=== PATIENT | male | born 1975 | race Caucasian/White ===

== ENCOUNTER 2018-02-04 21:06 | Emergency (ER) | payer BC, SELFPAY ==
[2018-02-04 21:12] VITALS: BP 128/95; PULSE 98; RESP 18; TEMP 37.1; O2SAT 98
--- NOTE | 2018-02-04 21:23 | DI.RAD_ITS ---
SYMPTOM/DIAGNOSIS: ANKLE PAIN LEFT ANKLE: Three views. No acute fracture or dislocation is seen. There does appear to be thickening of the Achilles tendon. This may reflect prior history and Achilles tendinopathy. Acute tendon injury cannot be excluded. IMPRESSION: No acute bone or joint abnormality. Follow up as clinically appropriate.
--- NOTE | 2018-02-04 21:29 | ED.GENADUL_ITS ---
Discharge Plan Disposition Patient Disposition: HOME Condition: Stable Discharge Details Chief Complaint: Orthopedic Clinical Impression: Strain of left Achilles tendon Primary Care Provider: Merna Cochran ED Provider: Madhu Cuenca Home Meds and New Rx's Prescriptions: No Action No Known Home Meds RF: 0 Discharge Instructions Instructions: Achilles Tendon Rupture (ED) Additional Instructions: Please wear your Ortho boot that you were given after your Achilles surgery. You may take this off at times asleep but otherwise keep boot on at all times. Wednesday morning call orthopedic office for arrangement of follow-up appointment and you should rest left lower extremity until cleared by orthopedic surgeon. May take [id number] acetaminophen as needed for pain control. Just take as directed on packaging. Stand Alone Forms: Work Release Referrals: Guero Shell MD [ [facility] STAFF PHYSICIAN] - (Please call the office for arrangement of close follow-up appointment next week.) Medical Decision Making Patient presented to the emergency department chief complaint of left Achilles pain. 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 Patient is status post Achilles tendon repair from rupture that occurred approximately 5 months ago. Patient states nowhere near the amount of discomfort he had when he initially tore his Achilles and just states some continued range of motion of foot and ankle but while standing he felt sharp severe pain along his incision line and then felt something break free . Patient continues to have mild posterior ankle pain. Patient does have some notable difference in Hanson test with the left compared to the but there is still flexion of the foot on the left. Patient does have deformity of the left Achilles approximately 2 inches above the heel which corresponds with incision and I feel this is more postoperative deformity than new finding. Plan to check plain film imaging for any soft tissue deformity Patient denies any need for pain medication at this time. Review of radiological imaging she has no acute bone or joint abnormality. Of notation is radiologist mentioning thickening of the distal Achilles tendon consistent with prior surgery. The patient still does have some flexion of the foot I feel that this may be a strain of the Achilles tendon postoperatively but given patient's occupation I feel that he should remain out of work until cleared by orthopedic surgeon after reevaluation. Patient patient states that he has a postoperative boot to place foot flexion/equinus position. He was encouraged to use this immediately upon discharge home and to keep this on during hours of being awake and that he may remove this for sleep and to call orthopedic office on Wednesday morning. After discussion of diagnosis and plan of care patient has no further needs, questions, or concerns and states clear understanding to return to the emergency department for any worsening symptoms. HPI General Mode of arrival: ambulatory . Date/Time Provider Initiated Documentation: 02/04/18 21:10 . Limitations to Documentation: no limitations . Information obtained by: patient, RN notes reviewed and old records reviewed . History of Present Illness 42 year old M presents to the emergency department with the chief complaint of left ankle/Achilles pain, described as mild, with intensity rated at 4. Quality is described as sharp, and is localized to the left and lower extremity. Patient started experiencing this minute(s) (20) and it has been constant. Rest improves symptom(s), Movement worsens symptoms . Patient notes no other symptoms.. Patient did receive the following treatments prior to arrival, none Related Data Home Medications Medication Instructions Recorded Confirmed Unknown [No Known Home Meds] 02/04/18 02/04/18 Allergies Allergy/AdvReac Type Severity Reaction Status Date / Time No Known Allergies Allergy Unverified 02/04/18 21:28 General Stated Complaint: Orthopedic TJ: 4 Review of Systems Constitutional Denies frequent falls Cardiovascular Denies syncope Musculoskeletal Reports as per HPI, Denies numbness and Denies tingling Neurologic Denies syncope, Denies frequent falls, Denies numbness and Denies tingling PFSH Social History Smoking/Tobacco Use Status: Current every day Exam Const General: cooperative, healthy appearing and no acute distress Orientation: alert, awake and oriented x3 Resp Effort & Inspection: normal respiratory effort and able to speak in complete sentences Cardio Rate: regular rate Rhythm: regular rhythm Extrem Left lower extremity: lower leg Details: normal to inspection; no tenderness, no localized swelling, no palpable cords and no deformity and ankle Details: abnormal to inspection Details: other (Patient does have obvious deformity to left Achilles which corresponds with scarring), tenderness Location: of the achilles tendon and achilles tendon exam abnormal Details: tenderness to palpati on and Hanson Test abnormal (Hanson's test does not reveal full flexion of the foot but there is still movement with testing) Course Vital Signs Temperature 37.1 C 02/04/18 21:12 Pulse 98 H 02/04/18 21:12 Respiratory Rate 18 02/04/18 21:12 Blood Pressure 128/95 H 02/04/18 21:12 Pulse Oximetry 98 02/04/18 21:12 Temperature 37.1 C 02/04/18 21:12 Temperature Source Temporal Artery Scan 02/04/18 21:12 Pulse 98 H 02/04/18 21:12 Respiratory Rate 18 02/04/18 21:12 Respiratory Effort 02/04/18 21:12 Blood Pressure 128/95 H 02/04/18 21:12 Pulse Oximetry 98 02/04/18 21:12 Oxygen Delivery Method Room Air 02/04/18 21:12 Oxygen Flow Rate 0 02/04/18 21:12 Pain Level 4 02/04/18 21:22
--- NOTE | 2018-02-04 22:07 | DI.VRAD_ITS ---
EXAM: XR Left Ankle Complete, 3 or more Views EXAM DATE/TIME: 02/04/2018 9:26 PM CLINICAL HISTORY: 42 years old, male; Pain; Ankle; Left; Prior surgery; Surgery type: Achilles tendon repair 2 years ago TECHNIQUE: XR Left ankle 3 or more views. COMPARISON: No relevant prior studies available. FINDINGS: There is thickening of the distal Achilles tendon consistent with history of prior surgery and Achilles tendinopathy. Other underlying Achilles tendon pathology is not excluded. No bone or joint abnormality is identified. The ankle mortise is symmetric and intact. No fracture is seen. IMPRESSION: No acute bone or joint abnormality. Dictated and Authenticated by: Paulino Joy MD. Ordering:ANUP Leung MD
== END 2018-02-04 22:39 | disposition home or self-care (01) ==
PROVIDERS: Emergency Provider Nurse Practitioner Family; PCP Nurse Practitioner Family
DX: S86.012A Strain of left Achilles tendon, initial encounter (principal); X58.XXXA Exposure to other specified factors, initial encounter
CPT/HCPCS: 99283; 73610; 99282

== ENCOUNTER 2018-07-09 16:38 | Emergency (ER) | payer SELFPAY ==
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
[2018-07-09 16:43] VITALS: BP 145/93; PULSE 95; RESP 16; TEMP 37.6; O2SAT 95
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
[2018-07-09 17:50] VITALS: BP 145/93; PULSE 95; RESP 16; TEMP 37.6; O2SAT 95
== END 2018-07-09 17:39 | disposition home or self-care (01) ==
PROVIDERS: Emergency Provider Physician Assistant; PCP Nurse Practitioner Family
DX: S60.221A Contusion of right hand, initial encounter (principal); S60.211A Contusion of right wrist, initial encounter; Y00.XXXA Assault by blunt object, initial encounter; Y99.0 Civilian activity done for income or pay
CPT/HCPCS: 99284; 73110; 73130; 99282

== ENCOUNTER 2022-04-02 20:53 | Emergency (ER) | payer BC, SELFPAY ==
[2022-04-02 20:56] VITALS: BP 146/90; PULSE 94; RESP 18; TEMP 37.2; O2SAT 98
--- NOTE | 2022-04-02 21:08 | W.ED.GENAD ---
Discharge Plan Disposition Patient Disposition: Home Condition: Improving Discharge Details Clinical Impression: Renal colic on left side Primary Care Provider: Merna Cochran ED Provider: Tim Carpio Home Meds and New Rx's Prescriptions: New hydrocodone-acetaminophen 5-325 mg tablet 1 tab PO Q8H PRN (Reason: pain) Qty: 5 0RF Discharge Instructions Instructions: Renal Colic (ED) Additional Instructions: Our care management team will work to get you a follow-up appointment in urology clinic. Please strain your urine to see if you can catch the kidney stone. Ibuprofen, next dose in 6 hours, as needed for pain. May use the provided hydrocodone with acetaminophen for severe or breakthrough pain. Return to the ER if you develop a fever or any other acute concerns Medical Decision Making 46-year-old male presents with the abrupt onset of left flank pain that comes in waves and has lasted approximately 1 hour. He has not had a fever or vomiting. Did not notice a change to urine. He arrives afebrile, interactive and normotensive. Noted a pulse in the 90s at triage. He demonstrates tenderness to the left flank on exam. Differential diagnosis would include renal colic, and patient had IV access established, screening labs obtained, given small fluid bolus and 15 mg of ketorolac. Labs reveal white count 11, hematocrit 45, platelets 307. Chemistries unremarkable. CT: Mild left hydroureteronephrosis with a 1 x 1 mm calculus in the distal left ureter. Minimal inflammation surrounding the left kidney and the perirenal fat. Note of additional punctate left upper pole nonobstructive calculus. Urinalysis HPI General Mode of arrival: ambulatory. Date/Time Provider Initiated Documentation: 04/02/22 20:54. Limitations to Documentation: no limitations. Information obtained by: patient. History of Present Illness 46 year old M presents to the emergency department with the chief complaint of Left low back pain for 1 hour, described as moderate, Quality is described as other (Sharp and throbbing), and is localized to the back and left. Patient reports no radiation. Patient started experiencing this minute(s) and it has been intermittent. No relieving factors improve symptom(s), No exacerbating factors reported . Patient notes denies chest pain, fever/chills, loss of appetite and nausea/vomiting. Patient did receive the following treatments prior to arrival, other (Advil 400 mg) Related Data Home Medications Medication Instructions Recorded Confirmed hydrocodone 5 mg-acetaminophen 325 1 tab PO Q8H PRN pain #5 tabs 04/02/22 mg tablet Previous Rx's Medication Instructions Recorded hydrocodone 5 mg-acetaminophen 325 1 tab PO Q8H PRN pain #5 tabs 04/02/22 mg tablet Allergies Allergy/AdvReac Type Severity Reaction Status Date / Time No Known Allergies Allergy Unverified 04/02/22 22:09 General Stated Complaint: Nk/Back Pain TJ: 4 Review of Systems Narrative: No fever, no recent illness, otherwise well. 6 systems were reviewed [facility] All Active Problems (Updated 04/02/22 @ 22:16 by Tim Carpio MD) Renal colic on left side (Acute) Achilles tendonitis (Acute) Likely acute Achilles tendinopathy Status post Achilles tendon repair (Acute) DOS: 09/01/16 Dr. Shell Rupture of left Achilles tendon (Acute 08/31/16) Medical History (Updated 04/02/22 @ 22:16 by Tim Carpio MD) No significant past medical history Surgical History No significant past surgical history Social History Smoking/Tobacco Use Status: Current every day Smoking risk assessment performed?: Yes Alcohol Intake: never Drug use: Never Substance use type: does not use Do you feel safe at home: Yes Do you feel safe in your relationship?: Yes Exam Narrative Exam Narrative: GEN: awake, alert, oriented 3. Pleasant, well groomed, interactive. HEAD: Normocephalic, atraumatic ENT: Mucous membranes moist, oropharynx unremarkable, External ear exam unremarkable EYES: PERRL, EOMI NECK: Full ROM, no CLARICE, no menigismus CHEST/RESP: Nontender, clear to auscultation bilateral, no wheeze/rhonchi/rales CARDIOVASCULAR: RRR, no murmur, rub fiordaliza. 2+ Rad pulse bilateral ABDOMEN: Soft, minimal left upper abdomen tenderness without rebound or guarding, positive left flank tenderness to percussion, no mass. +Bowel sounds EXT: Full ROM, no edema, no rash Neuro: Grossly normal neurologic exam, conversant, interactive. Psych: Speech fluent, thoughts congruent, affect normal Course Vital Signs Vital signs: Vital Signs Temperature 37.2 C 04/02/22 20:56 Pulse 94 H 04/02/22 20:56 Respiratory Rate 18 04/02/22 20:56 Blood Pressure 146/90 H 04/02/22 20:56 Pulse Oximetry 98 04/02/22 20:56 Temperature 37.2 C 04/02/22 20:56 Pulse 94 H 04/02/22 20:56 Respiratory Rate 18 04/02/22 20:56 Respiratory Effort Normal 04/02/22 21:02 Blood Pressure 146/90 H 04/02/22 20:56 Blood Pressure Position Sitting 04/02/22 20:56 Pulse Oximetry 98 04/02/22 20:56 Oxygen Delivery Method Room Air 04/02/22 20:56 Oxygen Flow Rate 0 04/02/22 20:56 Pain Level 8 04/02/22 20:56 PAWSS Have you Been Recently Intoxicated or Drunk Within the Last 30 days?: No Have you Ever Experienced Previous Episodes of Alcohol Withdrawal?: No Have you ever Experienced Withdrawal Seizures?: No Have you ever Experienced Delirium Tremens(DT)s?: No Have you ever undergone Alcohol Rehabilitation Treatment (i.e, inpt ot outpatient treatment programs)?: No Have you ever Experienced Blackouts?: No Have you ever Combined Alcohol with other Downers within the last 90 days?: No Have you ever Combined Alcohol with any other Substance of Abuse during the last 90 days?: No Positive Blood Alcohol level on Presentation? [PCS.BAL]: No Evidence of Increased Autonomic Activity (i.e. HR>120, tremor, sweating, agitation, nausea)?: No Result: 0
[2022-04-02] MEDS: Ketorolac 30 MG/ML VIAL 15 MG IVP (21:23)
[2022-04-02 21:30] LABS: Abs Immature Grans 0.04 10^3/uL (0.0-0.06); Absolute Basophil Count 0.06 10^3/uL (0.0-0.2); Absolute Eosinophil Count 0.22 10^3/uL (0.0-0.7); Absolute Lymphocyte Count 4.21 10^3/uL (1.2-3.4); Absolute Monocyte Count 0.84 10^3/uL (0.1-0.8); Absolute Neutrophil Count 6.46 10^3/uL (1.2-6.7); Basophils % 0.5; Eosinophils % 1.9; HCT 45.1 % (40.0-50.0); HGB 15.4 g/dL (13.5-17.5); Immature Grans % 0.3; Lymphocytes % 35.6; MCH 31.4 pg (27.0-33.0); MCHC 34.1 % (32.0-36.0); MCV 92 fL (80-95); MPV 10.4 fL (8.0-11.0); Monocytes % 7.1; Neutrophils % 54.6; Platelet Count 307 10^3/uL (130-400); RDW 12.1 % (11.8-14.1); RDW-SD 41.6 fL; WBC 11.83 10^3/uL (4.4-10.8)
[2022-04-02] MEDS: Normal Saline 1,000 ML 1000 ML IV (21:33)
[2022-04-02 21:44] LABS: ALT 38 U/L (16-63); AST 33 U/L (15-37); Albumin 3.9 g/dL (3.4-5.0); Alkaline Phosphatase 93 U/L (46-116); Anion Gap 10.8 mmol/L (3-11); BUN 13 mg/dL (7-18); Bilirubin, Total 0.6 mg/dL (0.2-1.0); CO2 24.2 mmol/L (21.0-32.0); CREATININE 1.2 mg/dL (0.70-1.30); Chloride 105 mmol/L (98-107); Estimated GFR 76.48 (mL/min/1.73m2); Glucose 105 mg/dL (74-106); Potassium 4.2 mmol/L (3.5-5.1); Sodium 140 mmol/L (136-145); Total Protein 7.7 g/dL (6.4-8.2)
--- NOTE | 2022-04-02 21:45 | DI.CT_ITS ---
Exam(s) CT RENAL COLIC WO EXAM: CT RENAL COLIC WO CLINICAL HISTORY: L flank pain. TECHNIQUE: Imaging Protocol: Axial computed tomography images with coronal and sagittal reformatted images were created and reviewed. COMPARISON: No exams were available for comparison FINDINGS: ABDOMEN: Lung Bases: Normal where visualized. Liver: Normal density. No measurable mass. Gallbladder and biliary tract: No radiodense calculus or biliary ductal dilation. Pancreas: Normal density, no abnormal calcifications or inflammatory process. Spleen: Normal. Kidneys: Normal size, contour and axis.There is a 3.6 cm nonobstructing stone in the lower pole of th e left kidney. There is a 3 mm stone at the left UVJ causing minimal hydronephrosis. No masses seen . There is a circum aortic left renal vein. Adrenal glands: No mass is seen. Lymph nodes: Within normal limits. Abdominal Aorta: Abdominal portion non-dilated. Atherosclerosis is present. PELVIS: Bladder:Symmetric distention, no gross wall thickening. Bowel: No obstruction or bowel wall thickening. Appendix is unremarkable. There is diverticulosis of the colon but no evidence of acute diverticulitis. Peritoneal cavity: No ascites, collection or mesenteric inflammatory response. No free air. Reproductive organs: Unremarkable as visualized. Bones: Within normal limits. Soft Tissues: There is a small fat containing umbilical hernia. IMPRESSION: There is a 3 mm left UVJ stone causing mild hydronephrosis. RADIATION DOSE DELIVERED: 956.46mGy.cm Total DLP DATA REPOSITORY: All CT scans at this facility are submitted to the National Radiology Data Registry (NRDR) Dose Index Registry (DIR) with the [employer] ([employer]). RADIATION OPTIMIZATION: All CT scans at this facility use at least one of these dose optimization te chniques: automated exposure control; mA and/or kV adjustment per patient size (includes targeted exa ms where dose is matched to clinical indication); or iterative reconstruction.
[2022-04-02 22:12] LABS: Bilirubin Negative (Negative); Blood Moderate (Negative); Clarity Clear (Clear); Glucose Negative (Negative); Ketones Negative (Negative); Leukocyte Esterase Negative (Negative); Nitrite Negative (Negative); Specific Gravity >= 1.030 (1.005-1.025); Urobilinogen 0.2 EU/dL (Up TO 0.2); pH 6.5 (5-8)
--- NOTE | 2022-04-02 22:12 | DI.VRAD_ITS ---
PROCEDURE INFORMATION: Exam: CT Abdomen And Pelvis Without Contrast Exam date and time: 04/02/2022 9:40 PM Age: 46 years old Clinical indication: Abdominal pain; Patient HX: Left sided flank pain since 2000 hrs. TECHNIQUE: Imaging protocol: Computed tomography of the abdomen and pelvis without contrast. Radiation optimization: All CT scans at this facility use at least one of these dose optimization techniques: automated exposure control; mA and/or kV adjustment per patient size (includes targeted exams where dose is matched to clinical indication); or iterative reconstruction. COMPARISON: No relevant prior studies available. FINDINGS: Liver: Normal. No mass. Gallbladder and bile ducts: Contracted. No calcified stones. No ductal dilation. Pancreas: Normal. No ductal dilation. Spleen: Normal. No splenomegaly. Adrenal glands: Normal. No mass. Kidneys and ureters: Mild left hydroureteronephrosis. There is a 1 x 1 mm calculus in the distal left ureter in its intramural portion at the level of the urinary bladder. Series 2, image 135. This appears to be in the process of passing. There is minor inflammation in the left perirenal space. Additional punctate left lower pole renal calculus is noted. Right kidney is unremarkable. Stomach and bowel: Unremarkable. No obstruction. No mucosal thickening. Appendix: No evidence of appendicitis. Intraperitoneal space: Unremarkable. No free air. No significant fluid collection. Vasculature: Unremarkable. No abdominal aortic aneurysm. Lymph nodes: Unremarkable. No enlarged lymph nodes. Urinary bladder: Unremarkable as visualized. Reproductive: Unremarkable as visualized. Bones/joints: Unremarkable. No acute fracture. Soft tissues: Unremarkable. IMPRESSION: Mild left hydroureter with a 1 x 1 mm calculus at the distal left ureteral intramural portion at the urinary bladder. This appears to be in the process of passing. Minimal inflammation surrounding the left kidney in the pararenal fat. Additional punctate left upper pole nonobstructive calculus. Dictated and Authenticated by: Artie Carlin MD. Ordering:JAYA Dumont MD
[2022-04-02 22:18] LABS: Bacteria Negative HPF (Negative); C & S Indicated? No; Casts Negative LPF (Negative); Crystals Negative HPF (Negative); Epithelial Cells Few HPF (Negative); Mucus Negative (Negative); Other Cells Negative (Negative); WBC 0-2 HPF (0-5)
--- NOTE | 2022-04-02 22:20 | NUR.NOTE ---
Referral to urology sent over for Kidney stone Nursing Note:
[2022-04-02] MEDS: Tamsulosin 0.4 MG CAPCR PO (22:25)
== END 2022-04-02 22:33 | disposition home or self-care (01) ==
PROVIDERS: Emergency Provider Emergency Medicine; PCP Nurse Practitioner Family
DX: N13.2 Hydronephrosis with renal and ureteral calculous obstruction (principal)
CPT/HCPCS: 80053; 96361; 96374; 99284; 74176; 81003; 81015; 85025; J1885